=== PATIENT | female | born 1955 | race American Indian/Alaskan Native ===

== ENCOUNTER 2016-09-22 06:42 | Day surgery (SDC) | payer OTHER ==
[2016-09-22 07:31] LABS: Basophils % (Auto) 0.4 % (0.0-1.8); Eosinophils % (Auto) 1.1 % (0.0-4.3); Hematocrit 40.5 % (30.3-42.9); Hemoglobin 13.3 gm/dl (10.1-14.3); Mean Corpuscular HGB Conc 33 % (30-34); Mean Corpuscular Hemoglobin 27 pg (28-32); Mean Corpuscular Volume 81 fl (79-97); Platelet Count 231 K/mm3 (140-440); Red Blood Count 5.01 M/mm3 (3.65-5.03); Red Cell Distribution Width 16.3 % (13.2-15.2); White Blood Count 6.1 K/mm3 (4.5-11.0)
[2016-09-22 07:41] LABS: INR 1.01 (0.87-1.13)
[2016-09-22] MEDS ORDERED: ECOTRIN PO ONE (08:00)
[2016-09-22] MEDS ORDERED: NACL 0.9% 500 ML 500 ML IV SCH (08:00)
[2016-09-22 08:08] LABS: Anion Gap 17 mmol/L; BUN/Creatinine Ratio 18.75; Blood Urea Nitrogen 15 mg/dL (7-17); Calcium 9.5 mg/dL (8.4-10.2); Carbon Dioxide 29 mmol/L (22-30); Chloride 101.5 mmol/L (98-107); Glucose 97 mg/dL (65-100); Potassium 4.3 mmol/L (3.6-5.0); Sodium 143 mmol/L (137-145)
[2016-09-22] MEDS ORDERED: HEPARIN 10,000 UNITS/10 ML ONE (08:20)
[2016-09-22] MEDS ORDERED: HEPARIN/NS 5000 UNIT/500ML(CATH LAB) 1,000 ML IR ONE (08:20)
[2016-09-22] MEDS ORDERED: SUBLIMAZE ONE (08:21)
[2016-09-22] MEDS ORDERED: NITROGLYCERIN SYRINGE 3 ML ONE (08:21)
[2016-09-22] MEDS ORDERED: CALAN ONE (08:21)
[2016-09-22] MEDS ORDERED: VERSED ONE (08:21)
[2016-09-22] MEDS ORDERED: XYLOCAINE 2% INFILTRATI ONE (08:21)
--- NOTE | 2016-09-22 10:00 | Short Stay Summary ---
Short Stay Documentation Date of service: 09/22/16 - History H&P: obtained from office - Allergies and Medications Current Medications: Allergies No Known Allergies Allergy (Verified 09/22/16 07:04) Home Medications Medication Instructions Recorded Confirmed Last Taken Type Aspirin EC [Ecotrin] 325 mg PO QDAY 09/22/16 09/22/16 09/21/16 History Cholecalciferol Vit D3 [Vitamin D3] 5,000 unit PO QDAY 09/22/16 09/22/16 History Iron 18 mg PO QDAY 09/22/16 09/22/16 09/21/16 History Multivitamin Tab [Multiple Vitamin 1 each PO QDAY 09/22/16 09/22/16 09/21/16 History TAB (Theragran)] Pyridoxine HCl [Vitamin B-6] 100 mg PO DAILY 09/22/16 09/22/16 09/21/16 History Active Medications Sodium Chloride (Nacl 0.9% 500 Ml) 500 mls @ 50 mls/hr IV DIRECT KASEY Stop: 09/22/16 17:59 Last Admin: 09/22/16 07:45 Dose: 50 mls/hr - Physical exam General appearance: no acute distress Integumentary: no rash HEENT: Atraumatic Lungs: Clear to auscultation Breasts: deferred Heart: Regular rate Gastrointestinal: normal Female Genitourinary: deferred Rectal Exam: deferred Extremities: no ischemia Neurological: Normal gait - Brief post op/procedure progress note Date of procedure: 09/22/16 Pre-op diagnosis: Abnormal stress test, shortness of breath Post-op diagnosis: same Procedure: LHC, LV gram Anesthesia: MAC Findings: see report Surgeon: SARAH TRAYLOR Estimated blood loss: none Pathology: none Condition: stable - Hospital course Hospital course: Uneventful - Disposition Condition at discharge: Good Disposition: DC-[id number] TO HOME OR SELFCARE Short Stay Discharge Plan Activity: advance as tolerated Weight Bearing Status: Partial Weight Bearing Diet: low salt Follow up with: BONITA HIGHTOWER MD [Primary Care Provider] - 7 Days Prescriptions: Carvedilol [Coreg] 3.125 mg PO BID #60 tablet Furosemide [Lasix TAB] 20 mg PO QDAY #30 tablet Lisinopril [Zestril TAB] 2.5 mg PO QDAY #30 tab
--- NOTE | 2016-09-22 11:31 | Cardiac Catherization Report ---
LEFT HEART CATHETERIZATION INDICATION FOR PROCEDURE: Shortness of breath, abnormal myocardial perfusion scan. ORDERING PHYSICIAN: Dr. Peg Espinosa. PROCEDURES PERFORMED: 1. Selective left and right coronary angiography. 2. Left ventriculography. DESCRIPTION OF PROCEDURE: After obtaining written consent, the patient was draped using sterile technique. A 2% lidocaine was injected into the right wrist. A 6-Swedish vascular sheath was inserted into the right radial artery. A 6-Swedish JL3.5 catheter was used to selectively engage the left coronary artery. A 6-Swedish JR4 catheter was used to selectively engage the right coronary artery. A 6-Swedish pigtail catheter was used to perform a left ventriculogram. No complications occurred during the procedure. Hemostasis was achieved at the end of the procedure using manual pressure. ESTIMATED BLOOD LOSS: Minimal. SPECIMEN REMOVED: None. Conscious sedation administered was 1 mg of IV Versed and 25 mcg of IV fentanyl. FINDINGS: HEMODYNAMICS: Aortic pressure was 122/67. The left ventricular systolic pressure was 126 mmHg. The left ventricular end-diastolic pressure was 24 mmHg. CARDIAC STRUCTURES: The left ventricle is normal in size. There is evidence of moderate global left ventricular hypokinesis. The left ventricular ejection fraction is estimated between 35 and 40%. No significant mitral regurgitation. The proximal portion of the aortic root is within normal limits. CORONARY ANATOMY: 1. This is a right dominant circulation. 2. The left main is angiographically normal. 3. The LAD is angiographically normal. 4. The left circumflex artery is angiographically normal. 5. The right coronary artery is angiographically normal. IMPRESSION: 1. Angiographically normal coronary circulation. 2. Normal left ventricular size with moderate global left ventricular hypokinesis, left ventricular ejection fraction estimated between 35 and 40%. 3. LVEDP measured at 24 mmHg. RECOMMENDATIONS: 1. Hold Herceptin for the time being. 2. Start carvedilol 3.125 mg p.o. twice a day, lisinopril 2.5 mg p.o. daily and Lasix 20 mg p.o. daily. 3. Follow up with referring pad extractor tender, Dr. Espinosa. 4. Consider repeat echocardiogram in 4 weeks. JOB# [id number]
[2016-09-22 14:45] VITALS: BP 168/104
== END 2016-09-22 12:15 | disposition home or self-care (01) ==
LOC: CATHLABREC 06:42
PROVIDERS: ATTEND Internal Medicine
DX: R94.39 Abnormal result of other cardiovascular function study (principal); R06.02 Shortness of breath; E78.5 Hyperlipidemia, unspecified; Z79.82 Long term (current) use of aspirin; Z85.3 Personal history of malignant neoplasm of breast
CPT/HCPCS: 36415; 80048; 85025; 85610; 85730; 93005; 93010; 93458; C1894; J1644; J2250; J3010; J7040; Q9967